=== PATIENT | male | born 1985 | race Caucasian/White ===

== ENCOUNTER 2023-04-26 13:35 | Outpatient (REF) | payer OTHER, SELFPAY ==
--- NOTE | ~2023-04-26 | MR_ITS ---
EXAMINATION: MR BRAIN WITHOUT AND WITH CONTRAST CLINICAL INFORMATION: Low testosterone. COMPARISON: None. TECHNIQUE: Multiplanar, multisequential imaging was obtained without and with intravenous administration of contrast. Intravenous contrast: Gadavist 5 mL. Slightly limited exam with motion artifacts. FINDINGS: No abnormal focus of decreased differential enhancement is seen within the pituitary gland. The infundibulum is midline. The cavernous sinuses opacify symmetrically. The internal carotid artery flow voids are maintained. No suprasellar soft tissue abnormality is seen. No diffusion abnormalities are identified to suggest an acute or subacute infarct. The ventricles are normal in size. No mass effect or midline shift is seen. No brain parenchymal signal abnormalities are seen. No extra-axial fluid collections are noted. The brainstem and cerebellum are normal. There is no abnormal parenchymal or leptomeningeal enhancement. The craniovertebral junction, marrow signal, and midline structures are normal. There are mild bilateral mastoid effusions. Retention cysts visible in the dependent maxillary sinuses. MR/MR head/brain wo/w con IMPRESSION: Slightly limited study with motion artifacts. Otherwise, no pituitary abnormality identified. No acute process. Normal MRI of the brain.
[2023-04-26] MEDS: gadobutroL 7.5 ML VIAL IVPUSH (14:25)
== END 2023-04-26 13:36 | disposition home or self-care (01) ==
LOC: HO.MRI 13:35
PROVIDERS: PCP Pediatrics; Visit Provider Physician Assistant Medical
DX: R79.89 Other specified abnormal findings of blood chemistry (principal)
CPT/HCPCS: 70553; A9585